=== PATIENT | female | born 1975 | race Caucasian/White ===

== ENCOUNTER → 2021-07-22 11:13 | Outpatient (BNVA) | payer MEDICARE, SELFPAY | PROVIDERS: Family Provider Physician Assistant Medical; Visit Provider Psychiatry & Neurology Psychiatry | DX: Z79.899 Other long term (current) drug therapy (principal) | CPT/HCPCS: 80053; 80061; 83036; 84443 ==

== ENCOUNTER → 2022-04-25 13:28 | Outpatient (BNVA) | payer MEDICARE, SELFPAY | PROVIDERS: Family Provider Physician Assistant Medical; Referring Provider Nurse Practitioner Family; Visit Provider Student in an Organized Health Care Education/Training Program | DX: M67.431 Ganglion, right wrist (principal) | CPT/HCPCS: 73110; 99203 ==

== ENCOUNTER → 2022-09-22 12:34 | Outpatient (BNVA) | payer MEDICARE, SELFPAY | PROVIDERS: Family Provider Physician Assistant Medical; Visit Provider Psychiatry & Neurology Psychiatry | DX: Z79.899 Other long term (current) drug therapy | CPT/HCPCS: 80053; 80061; 83036; 84443; 85025 ==

== ENCOUNTER 2024-06-07 14:27 | Outpatient (CLI) | payer MEDICARE, SELFPAY ==
[2024-06-07 15:26] LABS: Basophils % 0.8 %; Eosinophils # 0.1 10^3/uL (0.0-0.8); Eosinophils % 1.5 %; Hematocrit 38.9 % (36-47); Lymphocytes # 1.2 10^3/uL (0.8-4.8); Lymphocytes % 30.5 %; Mean Corpuscular HGB Conc 34.4 g/dL (30-55); Mean Corpuscular Hemoglobin 30.4 pg (27-33); Mean Corpuscular Volume 88.2 fl (85-98); Mean Platelet Volume 10.3 fL (7.4-10.4); Monocytes # 0.3 10^3/uL (0.2-0.9); Monocytes % 6.7 %; Neutrophils # 2.35 10^3/uL (1.8-7.7); Neutrophils % 60.2 %; Nucleated Red Blood Cells % 0 %; Platelet Count 198 10^3/cmm (157-399); Red Blood Count 4.41 10^6/uL (3.85-5.65); Red Cell Distribution Width 12.1 % (12.1-15.1)
[2024-06-07 16:03] LABS: Hepatitis C Virus Antibody Non-Reactive (Nonreactive)
[2024-06-09 05:20] LABS: ANCA Screen NEGATIVE (NEGATIVE)
== END 2024-06-07 14:28 | disposition home or self-care (01) ==
PROVIDERS: PCP Family Medicine; Visit Provider Nurse Practitioner Family
DX: L30.9 Dermatitis, unspecified (principal)
CPT/HCPCS: 36415; 81241; 82595; 85025; 86036; 86803

== ENCOUNTER 2024-06-16 08:36 | Outpatient (CLI) | payer MEDICARE, SELFPAY | END 2024-06-16 08:37 | disposition home or self-care (01) | PROVIDERS: PCP Family Medicine; Visit Provider Nurse Practitioner Family | DX: L30.9 Dermatitis, unspecified (principal) | CPT/HCPCS: 36415; 82595 ==

== ENCOUNTER 2024-06-21 12:59 | Outpatient (CLI) | payer MEDICARE, SELFPAY ==
--- NOTE | 2024-06-21 | MM_ITS ---
WS: [id number] DIAGNOSTIC BILATERAL DIGITAL BREAST TOMOSYNTHESIS MAMMOGRAPHY WITH CAD LEFT breast ultrasound, limited HISTORY: LEFT BREAST LUMP COMPARISON: None available. TECHNIQUE: Bilateral craniocaudad, mediolateral oblique, and mediolateral views are submitted with tomosynthesis and SM. Spot compression LEFT CC and MLO. Computer aided detection utilized. Breast composition: The breasts are extremely dense, which lowers the sensitivity of mammography. Lobulated high density mass with partially obscured margins in the lateral LEFT breast near 3:00 measures 1.4 x 1.0 x 1.7 cm. There is an additional mass at the same level just more posterior and smaller measuring 1.0 x 0.7 x 0.8 cm. The remaining breasts are very dense. No suspicious grouping of calcifications. LEFT breast ultrasound, limited. Lobulated hypoechoic mass in the LEFT breast at 3:00, 2 cm from the nipple measures 1.3 x 0.8 x 1.4 cm. Minimal increased vascularity There is a similar but smaller hypoechoic mass at 3:00, 4 cm from the nipple measuring 0.7 x 0.5 x 0.8 cm. No through transmission. Mild increased vascularity. MM/MM diag BI tomosynthesis [id number] IMPRESSION: BI-RADS: 4 - Suspicious Finding - Biopsy Should Be Considered FOLLOW UP: Biopsy Recommended 2 solid hypoechoic masses in the LEFT breast at 3:00. Ultrasound-guided biopsy recommended of each of these masses. Notified ATIYA Kirkland at 06/21/2024 2:21 PM. Discussed with April.
--- NOTE | 2024-06-21 13:04 | US_ITS ---
NOTE: Report was unsigned for reason: Order was edited. Original Signature date and time was: 06/21/24 @ 2106 WS: [id number] DIAGNOSTIC BILATERAL DIGITAL BREAST TOMOSYNTHESIS MAMMOGRAPHY WITH CAD LEFT breast ultrasound, limited HISTORY: LEFT BREAST LUMP COMPARISON: None available. TECHNIQUE: Bilateral craniocaudad, mediolateral oblique, and mediolateral views are submitted with tomosynthesis and SM. Spot compression LEFT CC and MLO. Computer aided detection utilized. Breast composition: The breasts are extremely dense, which lowers the sensitivity of mammography. Lobulated high density mass with partially obscured margins in the lateral LEFT breast near 3:00 measures 1.4 x 1.0 x 1.7 cm. There is an additional mass at the same level just more posterior and smaller measuring 1.0 x 0.7 x 0.8 cm. The remaining breasts are very dense. No suspicious grouping of calcifications. LEFT breast ultrasound, limited. Lobulated hypoechoic mass in the LEFT breast at 3:00, 2 cm from the nipple measures 1.3 x 0.8 x 1.4 cm. Minimal increased vascularity There is a similar but smaller hypoechoic mass at 3:00, 4 cm from the nipple measuring 0.7 x 0.5 x 0.8 cm. No through transmission. Mild increased vascularity. [facility] [id number] IMPRESSION: BI-RADS: 4 - Suspicious Finding - Biopsy Should Be Considered FOLLOW UP: Biopsy Recommended 2 solid hypoechoic masses in the LEFT breast at 3:00. Ultrasound-guided biopsy recommended of each of these masses. Notified ATIYA Kirkland at 06/21/2024 2:21 PM. Discussed with April.
== END 2024-06-21 13:00 | disposition home or self-care (01) ==
PROVIDERS: PCP Family Medicine; Visit Provider Nurse Practitioner Family
DX: R23.1 Pallor (principal); N63.23 Unspecified lump in the left breast, lower outer quadrant
CPT/HCPCS: 76641; 76642; 77062; 99212; G0279

== ENCOUNTER 2024-06-29 08:17 | Oncology outpatient (recurring) (ONCR) | payer MEDICARE, SELFPAY | END 2024-07-16 23:59 | disposition home or self-care (01) | PROVIDERS: PCP Family Medicine; Visit Provider Nurse Practitioner Family | DX: R23.1 Pallor (principal); N63.0 Unspecified lump in unspecified breast; R03.0 Elevated blood-pressure reading, without diagnosis of hypertension | CPT/HCPCS: 99205 ==

== ENCOUNTER 2024-07-06 12:44 | Outpatient (CLI) | payer MEDICARE, SELFPAY ==
--- NOTE | 2024-07-06 12:51 | US_ITS ---
WS: [id number] ULTRASOUND-GUIDED LEFT BREAST BIOPSY x 2 HISTORY: 2 masses LEFT breast along the 3:00 axis. COMPARISON: 06/21/2024 Procedure, risks and complications are explained to the patient. Medications are reviewed. Consent is obtained. Masses in the LEFT breast identified 3:00, 1 of these masses 2 cm and the other is 4 cm from the nipple at 3:00. Skin is cleansed with ChloraPrep and anesthetized with 1% buffered lidocaine. Small dermatome is made. Under sterile conditions masses are biopsied with 14-gauge Achieve needles. Multiple core biopsies are performed. Material placed in formalin and sent to pathology for review. No complications encountered. Breast tissue marker (Ideal Binary ultrasound enhanced ribbon): Biopsy clips are LEFT within each breast mass postprocedure. Patient left the radiology suite with no complications. Patient is instructed to return to [facility] or call with any concerns. US/[place] [id number] IMPRESSION: 1. Uncomplicated core needle biopsy LEFT breast mass 3:00, 2 cm from the nippl e. PATHOLOGY: Fibroepithelial lesion. No atypia or malignancy. Features consistent with fibroadenoma. RECOMMENDATION: 6-month LEFT breast ultrasound follow-up. 2. Uncomplicated core needle biopsy LEFT breast mass 3:00, 4 cm from the nippl e. PATHOLOGY: Benign breast parenchyma with fibrocystic changes including adenosis , cyst formation and fibrosis. No atypia or malignancy. RECOMMENDATION: LEFT breast ultrasound follow-up in 6 months.
== END 2024-07-06 12:45 | disposition home or self-care (01) ==
LOC: RAD 12:46
PROVIDERS: PCP Family Medicine; Visit Provider Nurse Practitioner Family
DX: N63.23 Unspecified lump in the left breast, lower outer quadrant (principal); N64.89 Other specified disorders of breast; N60.22 Fibroadenosis of left breast; N60.32 Fibrosclerosis of left breast; R92.0 Mammographic microcalcification found on diagnostic imaging of breast
CPT/HCPCS: 19083; 19084; 88305